=== PATIENT | female | born 1965 | race Caucasian/White ===

== ENCOUNTER → 2019-11-07 10:15 | Outpatient (CLI) | payer OTHER, SELFPAY ==
--- NOTE | ~2019-11-07 | MM_ITS ---
EXAMINATION: MM scrn lou implant BI w frederick HISTORY: Screening mammogram TECHNIQUE: Craniocaudal and mediolateral oblique 3-D tomosynthesis images with implant displacement a nd synthetic 2-D images were generated. Craniocaudal and mediolateral oblique views of the breasts wi thout implant displacement were obtained using full field digital mammography. CAD analysis was submi tted and interpreted. COMPARISON: 05/22/2010, 02/03/2007 BREAST PARENCHYMAL COMPOSITION: The breasts are almost entirely fatty. FINDINGS: There is no evidence of suspicious mass, calcification, or architectural distortion to sugg est malignancy in either breast. There has been no suspicious interval change. IMPRESSION: 1. No mammographic evidence of malignancy. 2. Recommend routine screening mammography in one year. BI-RADS Category 1: Negative Reviewed, dictated and finalized at location A.
--- NOTE | ~2019-11-07 | DEXA_ITS ---
Bone Density Report Name: Shelia Roman Age: 54 Sex: Female Ethnicity: White Date of : 1965 Indication: postmenopausal; screening for osteoporosis; Referring Provider: Cate Pederson Study: Bone densitometry was performed. Exam Date: November 07, 2019 Accession number: [id number] Bone Density: Region BMD T-score Z-score Classification AP Spine (L1-L4) 1.133 0.8 1.7 Normal Femoral Neck (Left) 0.873 0.2 1.2 Normal Total Hip (Left) 1.072 1.1 1.7 Normal Femoral Neck (Right) 0.882 0.3 1.3 Normal Total Hip (Right) 1.055 0.9 1.5 Normal Total Hip Mean 1.064 1.0 1.6 Normal World Health Organization criteria for BMD impression classify patients as: Normal (T-score at or above -1.0), Osteopenia (T-score between -1.0 and -2.5), or Osteoporosis (T-score at or below -2.5). 10-year Fracture Risk: FRAX not reported because: All T-scores for Spine Total, Hip Total, Femoral Neck at or above -1.0 Clinical Information Provided by Patient: Has used the following medications: Vitamin D, 2 doses of Vit D in the past year Patient maximum height was 67.5 Menopause Age: 51 No regular weight bearing exercise Onset of menses at age 13 Number of children 2 Missed period for more than 6 months in a row Impression: The patient has normal bone mass. Discussion: BONE DENSITY IS ABOVE THE MINIMUM DESIRABLE LEVEL AT ALL SKELETAL SITES TESTED. This patient?s bone mineral density is above the minimum desirable level (T-score -1.0 or better) at all sites measured. The patient should follow a healthful lifestyle (good nutrition with adequate calcium and vitamin D, and appropriate weight-bearing exercise). Follow-Up: Consider repeating this study in 5 years or sooner if there is some new clinical indication. Reported by: [facility] on 11/07/2019 11:20:00 AM. Reviewed, dictated and finalized at location AHyun VARGHESE
== END ==
PROVIDERS: Visit Provider Family Medicine
DX: Z12.31 Encounter for screening mammogram for malignant neoplasm of breast (principal); Z78.0 Asymptomatic menopausal state
CPT/HCPCS: 77063; 77067; 77080

== ENCOUNTER → 2021-07-24 10:02 | Outpatient (CLI) | payer BC, SELFPAY ==
--- NOTE | ~2021-07-24 | MM_ITS ---
EXAMINATION: MM scrn lou implant BI w frederick HISTORY: Screening mammogram TECHNIQUE: Craniocaudal and mediolateral oblique 3-D tomosynthesis images with implant displacement a nd synthetic 2-D images were generated. Craniocaudal and mediolateral oblique views of the breasts wi thout implant displacement were obtained using full field digital mammography. CAD analysis was submi tted and interpreted. COMPARISON: 11/07/2019, 05/22/2010 BREAST PARENCHYMAL COMPOSITION: There are scattered areas of fibroglandular density. FINDINGS: There is no evidence of suspicious mass, calcification, or architectural distortion to sugg est malignancy in either breast. There has been no suspicious interval change. IMPRESSION: 1. No mammographic evidence of malignancy. 2. Recommend routine screening mammography in one year. BI-RADS Category 1: Negative Reviewed, dictated and finalized at location A.
== END ==
PROVIDERS: PCP Family Medicine; Visit Provider Obstetrics & Gynecology
DX: Z12.31 Encounter for screening mammogram for malignant neoplasm of breast (principal)
CPT/HCPCS: 77063; 77067

== ENCOUNTER → 2021-11-10 16:16 | Outpatient (CLI) | payer BC, SELFPAY ==
--- NOTE | ~2021-11-10 | XR_ITS ---
EXAMINATION: XR hip RT min 2V DATE: 11/10/2021 16:34 INDICATION: Right hip arthritis. TECHNIQUE: 2 views of right hip were obtained. COMPARISON: None. FINDINGS: Bone alignment is normal. No fracture. There is mild right hip osteoarthritis. There is mil d lumbar spondylosis. IMPRESSION: 1. Mild right hip osteoarthritis. Reviewed, dictated and finalized at location A.
== END ==
PROVIDERS: PCP Family Medicine
DX: M16.11 Unilateral primary osteoarthritis, right hip (principal)
CPT/HCPCS: 73502

== ENCOUNTER 2021-12-12 11:52 | Emergency (ER) | payer BC, SELFPAY ==
--- NOTE | ~2021-12-12 | XR_ITS ---
EXAMINATION: XR ankle RT min 3V INDICATION: Right ankle pain TECHNIQUE: Four views of the right ankle are obtained. COMPARISON: None available FINDINGS: There is no fracture, dislocation, or subluxation. The bones, soft tissues, and joint space s are normal. IMPRESSION: 1. No acute osseous abnormality. Reviewed, dictated and finalized at location A.
[2021-12-12 12:00] VITALS: BP 116/87; PULSE 62; RESP 20; TEMP 36.3; O2SAT 100
--- NOTE | 2021-12-12 13:00 | ED.EXTPRO ---
HPI - Extremity Problem General Chief complaint: Extremity Problem,Nontraumatic Stated complaint: Right ankle pain x 2 weeks Time Seen by Provider: 12/12/21 12:20 History of Present Illness HPI Narrative: 56-year-old female presenting with intermittent sharp severe stabbing pain in her right ankle that occurs every few minutes increasing frequency and intensity, denies any recent trauma. Only new medication is terbinafine. Related Data Home Medications Medication Instructions Recorded Confirmed pantoprazole 20 mg tablet,delayed 20 mg PO .PRN 09/17/20 11/19/21 release Allergies Allergy/AdvReac Type Severity Reaction Status Date / Time sumatriptan [From Imitrex] Allergy Severe hives Verified 12/12/21 12:03 metronidazole Allergy Mild yeast Verified 12/12/21 12:03 infection codeine Allergy Unknown Unknown Verified 12/12/21 12:03 hydrocodone Allergy Unknown Unknown Verified 12/12/21 12:03 metoclopramide Allergy Unknown Unknown Verified 12/12/21 12:03 propoxyphene Allergy Unknown Unknown Verified 12/12/21 12:03 Sulfa (Sulfonamide Allergy Unknown HIVES Verified 12/12/21 12:03 Antibiotics) SULFAMETHOXAZOLE (Generic Allergy Unknown Y Uncoded 12/12/21 12:03 Allergy) SUMATRIPTAN SUCCINATE Allergy Unknown Y Uncoded 12/12/21 12:03 (Generic Allergy) Review of Systems Review of Systems: CONST: No fever. HEENT: No sore throat C/V: No chest pain RESP: No cough GI: No abdominal pain : No dysuria. M/S: Severe right ankle pain SKIN: No rash. NEURO: [No focal numbness or weakness] PSYCH: [No depression] [facility] Past Medical History Medical History (Updated 12/12/21 @ 14:08 by Selin Ramey MD) Bilateral knee pain Dyslipidemia GERD (gastroesophageal reflux disease) Lyme disease Multiple joint pain Obesity (BMI 30-39.9) Sleep disorder Surgical History Surgical History H/O LEEP History of breast augmentation around 26 History of cholecystectomy (~2001) History of knee surgery left knee 07/2018 Hx of tonsillectomy around age 34 Family History Family History Father Family history of rheumatoid arthritis Family history of cardiovascular disease Acute myocardial infarction Mother Family history of kidney disease Family history of dementia Cerebrovascular accident Sibling Family history of cardiovascular disease Social History Social History Smoking status: Former smoker Second hand tobacco smoke exposure: No Smoking end date: 04/26/02 Alcohol intake: never Substance use: never Substance use type: does not use Gender identity (if verbalized by the patient): Female Exam Narrative: EXAMINATION OF ORGAN SYSTEMS/BODY AREAS: Constitutional: Vital signs per nursing GENERAL: Resting comfortably except for when she has the nerve pain at which point she spasms all over and screams HEAD: Normal with no signs of head trauma. EYES: EOMI, conjunctiva normal ENT: Hearing grossly intact LUNGS: Nonlabored breathing. HEART: [Regular rate and rhythm] ABD: [Soft], [nontender to palpation] EXT: Normal range of motion no swelling or deformity or tenderness of the right ankle SKIN: [No rashes or lesions.] NEURO: [Alert and oriented x 3. No gross focal sensory or strength deficits.] PSYCH: Normal affect Course Vital Signs Vital signs: Vital Signs Temperature 97.4 F L 12/12/21 12:00 Pulse Rate 62 12/12/21 12:00 Respiratory Rate 20 12/12/21 12:00 Blood Pressure 116/87 12/12/21 12:00 Pulse Oximetry 100 12/12/21 12:00 Oxygen Delivery Room Air 12/12/21 12:00 Temperature 97.4 F L 12/12/21 12:00 Pulse Rate 62 12/12/21 12:00 Respiratory Rate 20 12/12/21 12:00 Blood Pressure 116/87 12/12/21 12:00 Pulse Oximetry 100 12/12/21 12:00 Oxygen Delivery Room Air 12/12/21 12:00 MDM - Extremit
[2021-12-12] MEDS: GABAPENTIN 300 MG CAPSULE PO (13:07)
[2021-12-12] MEDS: LIDOCAINE 5% PATCH 1 PATCH TRANSDERM (13:07)
[2021-12-12 13:36] LABS: Basophils Percent Auto 0.4 % (0.2-1.2); Eosinophils Absolute Auto 0.1 K/mm3 (0-0.3); Eosinophils Percent Auto 1.8 % (0-4.4); Hematocrit 43.7 % (37.0-47.0); Hemoglobin 14.5 g/dL (12.0-15.0); Immature Granulocyte Absolute 0.03 K/mm3 (0.00-0.031); Immature Granulocyte Percent A 0.4 % (0-0.5); Lymphocytes Absolute Auto 1.94 K/mm3 (0.9-3.2); Lymphocytes Percent Auto 26.5 % (18.3-44.2); Mean Corpuscular HGB Conc 33.2 g/dl (32-36); Mean Corpuscular Volume 93.6 fl (80-100); Mean Platelet Volume 10.4 fl (7.4-10.4); Monocytes Absolute Auto 0.6 K/mm3 (0.1-0.6); Monocytes Percent Auto 7.9 % (2.6-8.5); Neutrophils Absolute Auto 4.6 K/mm3 (1.3-6.7); Platelet Count Result 273 k/mm3 (150-375); Red Blood Count 4.67 M/mm3 (4.2-5.4); Red Cell Distribution Width 12.3 % (11.5-14.5); White Blood Count 7.3 K/mm3 (4.5-10.0)
[2021-12-12 13:44] LABS: Anion Gap 10 mmol/L (8-16); Blood Urea Nitrogen 16 mg/dL (7-17); Calcium 10.2 mg/dL (8.4-10.2); Carbon Dioxide 27 mmol/L (22-30); Chloride 100 mmol/L (98-107); Estimated CRCL calculation 89 ml/min; Estimated Glomerular Filt Rate > 60; Glucose 98 mg/dL (65-110); Magnesium 2.1 mg/dL (1.6-2.3); Potassium 3.9 mmol/L (3.4-5.0); Sodium 137 mmol/L (137-145)
[2021-12-12 14:27] VITALS: BP 120/62; PULSE 76; RESP 18; O2SAT 99
== END 2021-12-12 14:28 | disposition home or self-care (01) ==
PROVIDERS: Emergency Provider Emergency Medicine; PCP Family Medicine
DX: G62.9 Polyneuropathy, unspecified (principal); M25.571 Pain in right ankle and joints of right foot; K21.9 Gastro-esophageal reflux disease without esophagitis; A69.20 Lyme disease, unspecified; E66.9 Obesity, unspecified; Z68.32 Body mass index [BMI] 32.0-32.9, adult; Z87.891 Personal history of nicotine dependence
CPT/HCPCS: 36415; 73610; 80048; 83735; 85025; 99283; A9270

== ENCOUNTER → 2022-01-23 09:28 | Outpatient (CLI) | payer BC, SELFPAY ==
--- NOTE | ~2022-01-23 | XR_ITS ---
EXAMINATION: XR lumbar spine min 4V DATE: 01/23/2022 10:03 INDICATION: Other spondylosis with radiculopathy, lumbosacral spine. TECHNIQUE: 5 views of lumbar spine were obtained. COMPARISON: Lumbar spine radiographs 01/02/2019 FINDINGS: There is 5 degrees dextrocurvature of lumbar spine. Vertebral body heights are normal. Ther e is mildly decreased disc height at L3-L4. There are endplate osteophytes at multiple levels. There is moderate facet joint osteoarthritis at L4-L5 and L5-S1 and mild facet joint osteoarthritis at othe r levels. IMPRESSION: 1. Mild lumbar spondylosis. Reviewed, dictated and finalized at location A. IMPRESSION: 1. Mild lumbar spondylosis.
== END ==
PROVIDERS: PCP Family Medicine; Visit Provider Physician Assistant
DX: M47.27 Other spondylosis with radiculopathy, lumbosacral region (principal)
CPT/HCPCS: 72110

== ENCOUNTER 2022-01-28 17:22 | Emergency (ER) | payer BC, SELFPAY ==
[2022-01-28 17:29] VITALS: BP 110/81; PULSE 64; RESP 20; TEMP 36.8; O2SAT 97
--- NOTE | 2022-01-28 17:45 | ED.FEMALEGU ---
HPI - Female Genitourinary General Chief complaint: Urogenital-Female Stated complaint: uti Time Seen by Provider: 01/28/22 17:35 Source: patient, RN notes reviewed and old records reviewed Mode of arrival: ambulatory Limitations: no limitations History of Present Illness HPI Narrative: 56-year-old female who presents to [facility] care with complaints of frequency of urination, burning, urgency, and perineal pressure which started last p.m. Patient reports she has had UTIs in the past patient denies any known fevers chills or sweats. Patient reports no back pain or flank pain. Patient denies any vaginal discharge or concern for STDs MD elicited complaint: UTI Onset (ago): day(s) (last pm) Location of symptoms: perineum Related Data Home Medications Medication Instructions Recorded Confirmed pantoprazole 20 mg tablet,delayed 20 mg PO .PRN 09/17/20 01/28/22 release calcium carbonate 600 mg-vitamin 1 cap PO DAILY 01/14/22 01/28/22 D3 12.5 mcg (500 unit) capsule (Calcium 600 with Vitamin D3) cetirizine 10 mg tablet (Zyrtec) 10 mg PO DAILY PRN Runny Nose 01/14/22 01/28/22 Allergies Allergy/AdvReac Type Severity Reaction Status Date / Time sumatriptan [From Imitrex] Allergy Severe hives Verified 01/28/22 17:40 metronidazole Allergy Mild yeast Verified 01/28/22 17:40 infection codeine Allergy Unknown Vomiting Verified 01/28/22 17:40 hydrocodone Allergy Unknown Vomiting Verified 01/28/22 17:40 metoclopramide Allergy Unknown Unknown Verified 01/28/22 17:40 propoxyphene Allergy Unknown Unknown Verified 01/28/22 17:40 Sulfa (Sulfonamide Allergy Unknown HIVES Verified 01/28/22 17:40 Antibiotics) SULFAMETHOXAZOLE (Generic Allergy Unknown Y Uncoded 01/27/22 09:05 Allergy) SUMATRIPTAN SUCCINATE Allergy Unknown Y Uncoded 01/27/22 09:05 (Generic Allergy) Review of Systems Review of Systems: CONSTITUTIONAL: Denies fever, chills, or sweats. CARDIOVASCULAR: Denies chest pain, palpitations, or edema. RESPIRATORY: Denies cough or dyspnea. GASTROINTESTINAL: Denies abdominal pain, nausea, vomiting, or diarrhea. GENITOURINARY: Reports dysuria, frequency, urgency. Denies flank pain or hematuria. SKIN: Denies rash or itching. MUSCULOSKELETAL: Denies back pain or myalgia. Denies CVA tenderness NEUROLOGIC: Denies headache All systems reviewed & are unremarkable except as noted in HPI and below PMFSH Past Medical History Medical History Arthritis Bilateral knee pain Claustrophobia Disorder of ligament, right ankle Dyslipidemia GERD (gastroesophageal reflux disease) Lyme disease Multiple joint pain Obesity (BMI 30-39.9) Obesity (BMI 30-39.9) Other spondylosis with radiculopathy, lumbosacral region Sleep disorder Alpha Wave Intrusion Surgical History Surgical History H/O LEEP History of breast augmentation around 26 History of cholecystectomy (~2001) History of knee surgery left knee 07/2018 Hx of tonsillectomy around age 34 Family History Family History Father Family history of rheumatoid arthritis Family history of cardiovascular disease Acute myocardial infarction Mother Family history of kidney disease Family history of dementia Cerebrovascular accident Sibling Family history of cardiovascular disease Other HLD (hyperlipidemia) Heart disease Hypertension Social History Social History Smoking status: Former smoker Tobacco type: cigarettes Second hand tobacco smoke exposure: No Smoking end date: 04/26/02 Alcohol intake: never Substance use: never Substance use type: does not use Gender identity (if verbalized by the patient): Female Comments At time of signature, agree with nursing past medical, surgical, social and family history. Ther
== END 2022-01-28 18:10 | disposition home or self-care (01) ==
PROVIDERS: Emergency Provider Registered Nurse; PCP Family Medicine
DX: N39.0 Urinary tract infection, site not specified (principal); Z87.891 Personal history of nicotine dependence; M19.90 Unspecified osteoarthritis, unspecified site; E78.5 Hyperlipidemia, unspecified; K21.9 Gastro-esophageal reflux disease without esophagitis; E66.9 Obesity, unspecified; Z68.36 Body mass index [BMI] 36.0-36.9, adult
CPT/HCPCS: 81003; 87086; 87088; 99213; G0463

== ENCOUNTER → 2022-02-09 07:10 | Outpatient (CLI) | payer BC, SELFPAY ==
--- NOTE | ~2022-02-09 | MR_ITS ---
EXAMINATION: MR ankle RT wo con DATE: 02/09/2022 08:08 INDICATION: Right ankle pain TECHNIQUE: Magnetic resonance imaging (MRI) of the right ankle was performed without intravenous cont rast. Sequences included sagittal, coronal, and axial proton-density weighted fast spin echo without and with fat saturation. COMPARISON: None. FINDINGS: Medial ankle ligaments: Deep and superficial deltoid ligaments as well as the spring ligament are normal. Lateral ankle ligaments: Partial-thickness tear involving the deep half of the fibular insertion of the anterior talofibular l igament without surrounding edema suggesting this is chronic.. Calcaneofibular and posterior talofibu lar ligaments are normal. The anterior and posterior inferior tibiofibular ligaments are normal. Tendons: Mild distal Achilles tendinosis without tear. The peroneus longus and brevis tendons are normal. The tibialis anterior and extensor hallucis longus and extensor digitorum longus tendons are normal. The tibialis posterior, flexor digitorum longus and flexor hallucis longus tendons are normal. Plantar fascia: Small plantar calcaneal spur at the origin of the otherwise normal plantar aponeurosis. Bones/other: Bone alignment is normal. No fracture or pathologic marrow replacing process. Mild osteoarthritis at the second-fourth metatarsophalangeal joint with unilateral extremity nonuniform joint space narrowin g and mild subarticular edema-like signal changes detailed the left distal clavicular fracture is the consensus leads still readily radiologist wanted at the middle and lateral cuneiforms at the base of the second and fourth metatarsals. Fluid: Small ankle joint effusion. No bursitis, tenosynovitis or other abnormal fluid collections. IMPRESSION: 1. 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 2. Nonspecific small right ankle joint effusion. 3. Mild osteoarthritis with small regions of high-grade chondromalacia at the second-fourth tarsal me tatarsal joints Reviewed, dictated and finalized at location A. IMPRESSION: 1. Likely chronic partial tear at the fibular insertion anterior talofibular li gament. 2. Nonspecific small right ankle joint effusion. 3. Mild osteoarthritis with small regions of high-grade chondromalacia at the s econd-fourth tarsal metatarsal joints
--- NOTE | ~2022-02-09 | MR_ITS ---
EXAMINATION: MR lumbar spine wo con DATE: 02/09/2022 08:08 INDICATION: Low back pain. TECHNIQUE: Magnetic resonance imaging (MRI) of the lumbar spine was performed without intravenous con trast. Sequences included sagittal T2-weighted FSE, sagittal T2-weighted FS FSE, sagittal T1-weighted FSE, and axial T2-weighted FSE. COMPARISON: Lumbar spine radiographs 01/23/2022 FINDINGS: There is 7 degrees dextrocurvature of lumbar spine. Vertebral body heights are normal. Ther e is mildly decreased disc height at L3-L4. The distal spinal cord signal intensity is normal. The co nus medullaris is at T12-L1. The following disc levels are specifically discussed: L1-L2: The disc does not extend beyond the endplate margin. There is mild bilateral facet joint osteo arthritis. There is no neural foraminal stenosis. There is no central canal stenosis. L2-L3: The disc is bulging with superimposed right foraminal extrusion. There is moderate bilateral f acet joint osteoarthritis. There is moderate right and mild left neural foraminal stenosis. There is mild central canal stenosis. L3-L4: The disc is bulging and has an annular fissure. There is severe bilateral facet joint osteoart hritis. There is mild right and moderate left neural foraminal stenosis. There is mild central canal stenosis. L4-L5: The disc is bulging and has an annular fissure. There is severe bilateral facet joint osteoart hritis. There is moderate bilateral neural foraminal stenosis. There is mild central canal stenosis. L5-S1: The disc is bulging and has an annular fissure. There is mild right and moderate left facet yvette int osteoarthritis. There is mild bilateral neural foraminal stenosis. There is mild central canal st enosis. IMPRESSION: 1. Moderate lumbar spondylosis. Reviewed, dictated and finalized at location B.
== END ==
PROVIDERS: PCP Family Medicine; Visit Provider Orthopaedic Surgery
DX: M47.896 Other spondylosis, lumbar region (principal); M25.471 Effusion, right ankle; M19.071 Primary osteoarthritis, right ankle and foot
CPT/HCPCS: 72148; 73721

== ENCOUNTER 2022-02-16 19:40 | Emergency (ER) | payer BC, SELFPAY ==
[2022-02-16 19:51] VITALS: BP 104/80; PULSE 80; RESP 18; TEMP 36.7; O2SAT 100
--- NOTE | 2022-02-17 00:36 | ED.EXTPRO ---
HPI - Extremity Problem General Chief complaint: Extremity Problem,Nontraumatic Stated complaint: screaming pain Time Seen by Provider: 02/17/22 00:33 Source: patient Mode of arrival: EMS Limitations: no limitations History of Present Illness HPI Narrative: This is a 56 year old female that presents to the ER for right ankle pain. Ongoing over the last couple of months. She has been seeing orthopedics and neurology for this. Reports intermittent shooting pains. She has been taking Gabapentin for this. Denies fever, erythema, edema, or numbness. Related Data Home Medications Medication Instructions Recorded Confirmed pantoprazole 20 mg tablet,delayed 20 mg PO .PRN 09/17/20 01/28/22 release calcium carbonate 600 mg-vitamin 1 cap PO DAILY 01/14/22 01/28/22 D3 12.5 mcg (500 unit) capsule (Calcium 600 with Vitamin D3) cetirizine 10 mg tablet (Zyrtec) 10 mg PO DAILY PRN Runny Nose 01/14/22 01/28/22 Allergies Allergy/AdvReac Type Severity Reaction Status Date / Time sumatriptan [From Imitrex] Allergy Severe hives Verified 02/16/22 19:49 metronidazole Allergy Mild yeast Verified 02/16/22 19:49 infection codeine Allergy Unknown Vomiting Verified 02/16/22 19:49 hydrocodone Allergy Unknown Vomiting Verified 02/16/22 19:49 metoclopramide Allergy Unknown Unknown Verified 02/16/22 19:49 propoxyphene Allergy Unknown Unknown Verified 02/16/22 19:49 Sulfa (Sulfonamide Allergy Unknown HIVES Verified 02/16/22 19:49 Antibiotics) SULFAMETHOXAZOLE (Generic Allergy Unknown Y Uncoded 01/27/22 09:05 Allergy) SUMATRIPTAN SUCCINATE Allergy Unknown Y Uncoded 01/27/22 09:05 (Generic Allergy) Review of Systems Review of Systems: CONSTITUTIONAL: Denies fever MUSCULOSKELETAL: Reports joint pain, and myalgia. NEUROLOGIC: Denies numbness, or weakness. All systems reviewed & are unremarkable except as noted in HPI and below PMFSH Past Medical History Medical History Arthritis Bilateral knee pain Claustrophobia Disorder of ligament, right ankle Dyslipidemia GERD (gastroesophageal reflux disease) Lyme disease Multiple joint pain Obesity (BMI 30-39.9) Obesity (BMI 30-39.9) Other spondylosis with radiculopathy, lumbosacral region Sleep disorder Alpha Wave Intrusion Surgical History Surgical History H/O LEEP History of breast augmentation around 26 History of cholecystectomy (~2001) History of knee surgery left knee 07/2018 Hx of tonsillectomy around age 34 Family History Family History Father Family history of rheumatoid arthritis Family history of cardiovascular disease Acute myocardial infarction Mother Family history of kidney disease Family history of dementia Cerebrovascular accident Sibling Family history of cardiovascular disease Other HLD (hyperlipidemia) Heart disease Hypertension Social History Social History Smoking status: Former smoker Tobacco type: cigarettes Second hand tobacco smoke exposure: No Smoking end date: 04/26/02 Alcohol intake: never Substance use: never Substance use type: does not use Gender identity (if verbalized by the patient): Female Exam Narrative: GENERAL: Well-appearing, well-nourished, and in no acute distress. HEAD: Normocephalic, atraumatic. EYES: EOMI. EXTREMITIES: Normal range of motion. No edema, erythema or warmth. Normal DP pulse. Normal sensation SKIN: Warm, dry, no rash. NEURO: No focal deficits. Alert and oriented x3. PSYCH: Normal mood and affect Course Vital Signs Vital signs: Vital Signs Temperature 98.1 F 02/16/22 19:51 Pulse Rate 80 02/16/22 19:51 Respiratory Rate 18 02/16/22 19:51 Blood Pressure 104/80 02/16/22 19:51 Pulse Oximetry 100 02/16/22 19:51 Oxygen Delive
[2022-02-17] MEDS: KETOROLAC 30 MG/ML VIAL (*BKC) IM (00:55)
[2022-02-17] MEDS: ACETAMINOPHEN 500 MG TABLET 1000 MG PO (00:55)
[2022-02-17 00:56] LABS: Basophils Percent Auto 0.5 % (0.2-1.2); Eosinophils Absolute Auto 0.2 K/mm3 (0-0.3); Eosinophils Percent Auto 2.6 % (0-4.4); Hematocrit 44.8 % (37.0-47.0); Hemoglobin 14.8 g/dL (12.0-15.0); Immature Granulocyte Absolute 0.01 K/mm3 (0.00-0.031); Immature Granulocyte Percent A 0.1 % (0-0.5); Lymphocytes Absolute Auto 3.15 K/mm3 (0.9-3.2); Lymphocytes Percent Auto 39.2 % (18.3-44.2); Mean Corpuscular Hemoglobin 31.4 pg (26-34); Mean Corpuscular Volume 95.1 fl (80-100); Monocytes Absolute Auto 0.6 K/mm3 (0.1-0.6); Monocytes Percent Auto 7.5 % (2.6-8.5); Neutrophils Percent Auto 50.1 % (45.5-73.1); Platelet Count Result 317 k/mm3 (150-375); Red Blood Count 4.71 M/mm3 (4.2-5.4); Red Cell Distribution Width 12.5 % (11.5-14.5)
[2022-02-17 01:07] VITALS: BP 114/83; PULSE 74; RESP 16; O2SAT 99
[2022-02-17 01:21] LABS: Anion Gap 13 mmol/L (8-16); Blood Urea Nitrogen 17 mg/dL (7-17); CRP < 0.5 mg/dL (<1.0); Calcium 9.4 mg/dL (8.4-10.2); Carbon Dioxide 27 mmol/L (22-30); Chloride 103 mmol/L (98-107); Estimated CRCL calculation 78 ml/min; Estimated Glomerular Filt Rate > 60; Glucose 126 mg/dL (65-110); Potassium 3.9 mmol/L (3.4-5.0); Sodium 143 mmol/L (137-145); Uric Acid 3.2 mg/dL (2.5-7.5)
[2022-02-17 01:22] LABS: INR 1.1; Prothrombin Time 13.7 Seconds (11.1-14.7)
[2022-02-17 01:23] LABS: Partial Thromboplastin Time 30.9 SECONDS (22.3-36.8)
[2022-02-17 01:35] LABS: D Dimer 0.48 ug/mL (<0.48); Erythrocyte Sedimentation Rate 12 mm/hr (0-20)
[2022-02-17 01:54] VITALS: BP 117/82; PULSE 70; RESP 16; O2SAT 94
== END 2022-02-17 01:55 | disposition home or self-care (01) ==
PROVIDERS: Physician Assistant; Emergency Provider Emergency Medicine; PCP Family Medicine
DX: M25.571 Pain in right ankle and joints of right foot (principal); G89.29 Other chronic pain; E78.5 Hyperlipidemia, unspecified; K21.9 Gastro-esophageal reflux disease without esophagitis; M19.90 Unspecified osteoarthritis, unspecified site; E66.9 Obesity, unspecified; Z68.32 Body mass index [BMI] 32.0-32.9, adult; G47.9 Sleep disorder, unspecified; Z87.891 Personal history of nicotine dependence
CPT/HCPCS: 36415; 80048; 84550; 85025; 85380; 85610; 85652; 85730; 86140; 96372; 99283; A9270; J1885

== ENCOUNTER 2022-02-18 09:23 | Outpatient (CLI) | payer BC, SELFPAY ==
--- NOTE | 2022-02-18 11:00 | NEURO_ITS ---
Impression: # Complains of right ankle pain. # Normal nerve conduction study. # Normal needle/EMG exam. # Clinical correlation recommended. Motor Nerve Conduction Lower Extremities Peroneal Nerve Conduction Velocity (m/sec) Terminal Latency (msec) Response Voltage(mV) Popliteal space-Ankle Ankle Extensor Dig Brevis Popliteal space Ankle Right 47-45 3.8 3-3 4 Left Tibial Nerve Conduction Velocity (m/sec) Terminal Latency (msec) Response Voltage(mV) Popliteal space-Ankle Ankle-Extensor Dig Brevis Popliteal space Ankle Right 45 3.9 5 6 Left F-waves Peroneal Nerve (ms) Tibial Nerve (ms) Right 53.2 53.5 Left Sensory Nerve Conduction Lower Extremities Sural Nerve Stimulation Terminal Latency (msec) Ankle Response Voltage (uV) Ankle Response Velocity (m/sec) Right 3.8 6 42 Left Superficial Peroneal Nerve Stimulation Terminal Latency (msec) Ankle Response Voltage (uV) Ankle Response Velocity (m/sec) Right 3.7 16 43 Left Left Right Muscles Examined Fibrillation Fasciculation Scarcity Voltage Duration Left Right Left Right Left Right Left Right Left Right x Ant Tibialis x Gastroc x Fibularis Long x Flex Dig Long x Ext Dig Brev Abd Hallucis Quadriceps Paraspinals MTDD
== END 2022-02-18 09:24 | disposition home or self-care (01) ==
LOC: ANHNEURO 09:24
PROVIDERS: PCP Family Medicine; Visit Provider Student in an Organized Health Care Education/Training Program
DX: M25.571 Pain in right ankle and joints of right foot (principal)
CPT/HCPCS: 95886; 95908

== ENCOUNTER → 2022-04-22 13:59 | Outpatient (CLI) | payer BC, SELFPAY ==
--- NOTE | ~2022-04-22 | MR_ITS ---
EXAMINATION: MR ankle RT wo/w con DATE: 04/22/2022 15:05 INDICATION: Right ankle pain TECHNIQUE: Magnetic resonance imaging (MRI) of the right ankle was performed without and with 20 mL M ultihance intravenous contrast. Sequences included axial, sagittal and coronal PD-weighted FSE, axial T2-weighted FS FSE, sagittal and coronal PD-weighted FS FSE, axial T1-weighted FS FSE and postcontra st axial, sagittal and coronal T1-weighted FS FSE. COMPARISON: 02/09/2022 FINDINGS: Medial ankle ligaments: Deep and superficial deltoid ligaments as well as the spring ligament are normal. Lateral ankle ligaments: The anterior and posterior inferior tibiofibular ligaments are normal. The anterior talofibular, calc aneofibular and posterior talofibular ligaments are normal. The previously suspected partial tear sofiya ng the deep margin of the fibular insertion of the anterior talofibular ligament is not appreciated i n the current study. Tendons: Unchanged mild distal Achilles tendinosis without tear. The peroneus longus and brevis tendons are no rmal. The tibialis anterior and extensor hallucis longus and extensor digitorum longus tendons are no rmal. The tibialis posterior, flexor digitorum longus and flexor hallucis longus tendons are normal. Plantar fascia: Small plantar calcaneal spur at the origin of the otherwise normal plantar aponeurosis. Bones/other: Bone alignment is normal. No fracture or pathologic marrow replacing process. Again seen is osteoarth ritis with mild to moderate nonuniform joint space narrowing at the second-fourth tarsal metatarsal j oints. There is associated focal subarticular edema-like signal change with minimal enhancement along the distal articular surfaces of the mid and bilateral cuneiforms and at the base of the second and fourth metatarsals consistent with overlying high-grade chondromalacia. This appears to have progress ed slightly at both sides of the dorsal/medial aspect of the second tarsal metatarsal joint. Addition al mild osteoarthritis with mild partial-thickness cartilage loss without degenerative subchondral ch anges at the medial side of the talonavicular joint and lateral side of the calcaneocuboid joint. No enhancing erosions to suggest inflammatory arthritis. No fracture or pathologic marrow replacing proc ess. The Lisfranc ligament complex is normal. No soft tissue mass or other abnormally enhancing lesio ns identified. Fluid: Interval decrease in a now minimal ankle joint effusion. IMPRESSION: 1. Polyarticular osteoarthritis, mild at the calcaneocuboid and talonavicular joints and mild to mode rate small regions of high-grade chondromalacia at the second-fourth tarsal metatarsal joints with in terval progression at the second tarsal metatarsal joint. 2. Interval decrease in a now minimal right ankle joint effusion. 3. Unchanged distal Achilles tendinosis without tear. Reviewed, dictated and finalized at location A. [employer]AC[employer] PROFESSIONAL IMPRESSION: 1. Polyarticular osteoarthritis, mild at the calcaneocuboid and talonavicular j oints and mild to moderate small regions of high-grade chondromalacia at the se cond-fourth tarsal metatarsal joints with interval progression at the second ta rsal metatarsal joint. 2. Interval decrease in a now minimal right ankle joint effusion. 3. Unchanged distal Achilles tendinosis without tear.
== END ==
PROVIDERS: PCP Family Medicine; Visit Provider Student in an Organized Health Care Education/Training Program
DX: M19.071 Primary osteoarthritis, right ankle and foot (principal)
CPT/HCPCS: 73723; A9577

== ENCOUNTER 2022-10-02 13:27 | Emergency (ER) | payer BC, SELFPAY ==
[2022-10-02 13:32] VITALS: BP 124/52; PULSE 78; RESP 16; TEMP 37.3; O2SAT 100
--- NOTE | 2022-10-02 13:42 | ED.GENADULT ---
HPI - General Adult General Chief complaint: Extremity Injury, Lower Stated complaint: R HIP PAIN Time Seen by Provider: 10/02/22 13:40 Source: patient, RN notes reviewed and old records reviewed Mode of arrival: ambulatory Limitations: no limitations History of Present Illness HPI narrative: 57 year old female presents to [facility] care with complaints of pain to her right hip and buttocks that she states has been going on for about 15 months and has flared for the past 2 days. She reports that she called her physician at [facility] and was told that she needed to go to ER but she came here. Patient told we do not have any pain medication available at out facility. She reports that pain is severe, throbbing, burning, especially with movement and ambulation. Patient requests RX for some Prednisone. Patient reports that they are waiting on preauthorization for another MRI,last was 8 months ago. Patient drove self here and ambulated into clinic with limping gait.Patient denies any difficulty with bowels or bladder function, states intermittent pain down right leg at various areas. MD complaint: right hip and buttock pain Onset (ago): day(s) (15 months initially with flare for past 2 days.) Location: buttocks, right and lower extremity (hip) Radiation: other (right leg) Severity: severe Severity scale (1-10): 10 Quality: burning, sharp and other (throbbing) Pain Consistency: constant Exacerbating factors: movement and other (ambulation) Treatments prior to arrival: other (anti- inflammatory meds) Related Data Home Medications Medication Instructions Recorded Confirmed calcium carbonate 600 mg-vitamin 1 cap PO DAILY 01/14/22 10/02/22 D3 12.5 mcg (500 unit) capsule (Calcium 600 with Vitamin D3) cetirizine 10 mg tablet (Zyrtec) 10 mg PO DAILY PRN Runny Nose 01/14/22 10/02/22 folic acid 1 mg tablet 1 mg PO DAILY 10/02/22 10/02/22 methotrexate sodium 2.5 mg tablet See Rx Instructions .Route .COMPLEX 10/02/22 10/02/22 Allergies Allergy/AdvReac Type Severity Reaction Status Date / Time sumatriptan [From Imitrex] Allergy Severe hives Verified 10/02/22 13:36 metronidazole Allergy Mild yeast Verified 10/02/22 13:36 infection codeine Allergy Unknown Vomiting Verified 10/02/22 13:36 hydrocodone Allergy Unknown Vomiting Verified 10/02/22 13:36 metoclopramide Allergy Unknown Unknown Verified 10/02/22 13:36 propoxyphene Allergy Unknown Unknown Verified 10/02/22 13:36 Sulfa (Sulfonamide Allergy Unknown HIVES Verified 10/02/22 13:36 Antibiotics) tramadol AdvReac Severe Migraine Verified 10/02/22 13:36 SULFAMETHOXAZOLE (Generic Allergy Unknown Y Uncoded 10/02/22 13:36 Allergy) SUMATRIPTAN SUCCINATE Allergy Unknown Y Uncoded 10/02/22 13:36 (Generic Allergy) Review of Systems Review of Systems: CONSTITUTIONAL: Denies fever, chills, or sweats. EYES: Denies visual changes, redness, or discharge. ENT: Denies rhinorrhea, congestion, sore throat, or otalgia. CARDIOVASCULAR: Denies chest pain, palpitations, or edema. RESPIRATORY: Denies cough or dyspnea. GASTROINTESTINAL: Denies abdominal pain, nausea, vomiting, or diarrhea. GENITOURINARY: Denies dysuria or hematuria. SKIN: Denies rash or itching. no contusion noted or any redness MUSCULOSKELETAL: Reports severe right buttock, right hip pain, or myalgia. NEUROLOGIC: Denies headache, numbness, or weakness. PSYCHIATRIC: Denies anxiety or depression.is very anxious All systems reviewed & are unremarkable except as noted in HPI and below PMFSH Past Medical History Medical History Ankylosing spondylitis Arthritis Bilateral knee pain Claustrophobia Disorder of ligament, right ankle Dyslipidemia GERD (gastroesophageal reflux disease) Lyme disease Multiple joint pain Obesity (BMI 30-39.9) Obesity (BMI 30-39.9) Other spondylosis with radiculopathy, lumbosacral region Sleep disorder Alpha Wave Intrusion Surgical History
== END 2022-10-02 13:57 | disposition home or self-care (01) ==
PROVIDERS: Emergency Provider Registered Nurse; PCP Family Medicine
DX: M54.31 Sciatica, right side (principal); Z87.891 Personal history of nicotine dependence; M45.9 Ankylosing spondylitis of unspecified sites in spine; E78.5 Hyperlipidemia, unspecified; K21.9 Gastro-esophageal reflux disease without esophagitis; M47.27 Other spondylosis with radiculopathy, lumbosacral region
CPT/HCPCS: 99213; G0463

== ENCOUNTER 2023-01-27 13:07 | Emergency (ER) | payer BC, SELFPAY ==
[2023-01-27 13:13] VITALS: BP 118/74; PULSE 82; RESP 16; TEMP 36.9; O2SAT 99
--- NOTE | 2023-01-27 13:38 | ED.URI ---
HPI - URI/Sore Throat General Chief Complaint: Upper Respiratory Infection Stated Complaint: Sinus Infection Time Seen by Provider: 01/27/23 13:09 Source: patient and RN notes reviewed History of Present Illness HPI Narrative: Patient is a 57-year-old female presents to urgent care with complaints of 3 weeks of sinus pressure, inflammation and drainage. Patient states she called her PCP last week and they told her it was viral and to use [id number] Mucinex and Sudafed. Patient states that she has been using combination of those medications for the last 3 weeks and also started sinus rinses without much improvement. Patient states that her mucus went from clear to green. Patient denies any cough, fever, nausea or vomiting. Patient states that she cannot be sick for her total hip replacement on February 12 and is requesting antibiotics. No other acute complaints. No acute distress noted. Patient aware of the plan of care. Some parts of this dictation were generated by voice recognition software and may contain typographical and/or grammatical inaccuracies. Related Data Home Medications Medication Instructions Recorded Confirmed cetirizine 10 mg tablet (Zyrtec) 10 mg PO DAILY PRN Runny Nose 01/14/22 01/27/23 Allergies Allergy/AdvReac Type Severity Reaction Status Date / Time sumatriptan [From Imitrex] Allergy Severe hives Verified 01/27/23 13:21 metronidazole Allergy Mild yeast Verified 01/27/23 13:21 infection codeine Allergy Unknown Vomiting Verified 01/27/23 13:21 hydrocodone Allergy Unknown Vomiting Verified 01/27/23 13:21 metoclopramide Allergy Unknown Unknown Verified 01/27/23 13:21 propoxyphene Allergy Unknown Unknown Verified 01/27/23 13:21 Sulfa (Sulfonamide Allergy Unknown HIVES Verified 01/27/23 13:21 Antibiotics) tramadol AdvReac Severe Migraine Verified 01/27/23 13:21 SULFAMETHOXAZOLE (Generic Allergy Unknown Y Uncoded 01/27/23 13:21 Allergy) SUMATRIPTAN SUCCINATE Allergy Unknown Y Uncoded 01/27/23 13:21 (Generic Allergy) Review of Systems Review of Systems: CONSTITUTIONAL: Denies fever, chills, or sweats. EYES: Denies visual changes, redness, or discharge. ENT: Reports of sinus pressure, congestion, postnasal drainage CARDIOVASCULAR: Denies chest pain, palpitations, or edema. RESPIRATORY: Denies cough or dyspnea. GASTROINTESTINAL: Denies abdominal pain, nausea, vomiting, or diarrhea. GENITOURINARY: Denies dysuria or hematuria. SKIN: Denies rash or itching. MUSCULOSKELETAL: Denies back pain, joint pain, or myalgia. NEUROLOGIC: Denies headache, numbness, or weakness. All other systems reviewed are negative, except as documented in HPI. [facility] Past Medical History Medical History Ankylosing spondylitis Arthritis Bilateral knee pain Claustrophobia Disorder of ligament, right ankle Dyslipidemia GERD (gastroesophageal reflux disease) Lyme disease Multiple joint pain Obesity (BMI 30-39.9) Obesity (BMI 30-39.9) Other spondylosis with radiculopathy, lumbosacral region Sleep disorder Alpha Wave Intrusion Surgical History Surgical History H/O LEEP History of breast augmentation around 26 History of cholecystectomy (~2001) History of knee surgery left knee 07/2018 Hx of tonsillectomy around age 34 Family History Family History Father Family history of rheumatoid arthritis Family history of cardiovascular disease Acute myocardial infarction Mother Family history of kidney disease Family history of dementia Cerebrovascular accident Sibling Family history of cardiovascular disease Other HLD (hyperlipidemia) Heart disease Hypertension Social History Social History Smoking status: Former smoker Tobacco type: cigarettes Second
== END 2023-01-27 13:55 | disposition home or self-care (01) ==
PROVIDERS: Emergency Provider Nurse Practitioner Family; PCP Family Medicine
DX: J32.9 Chronic sinusitis, unspecified (principal); Z87.891 Personal history of nicotine dependence
CPT/HCPCS: 99213; G0463

== ENCOUNTER → 2023-03-15 15:30 | Outpatient (CLI) | payer BC, SELFPAY ==
--- NOTE | ~2023-03-15 | US_ITS ---
US soft tissue lower back 03/15/2023 15:46 Indication: Localized swelling of the right lower back Procedure: High-resolution Limited ultrasound of the right lower back soft tissues Comparison: No prior studies for comparison. Findings: Normal heterogeneous soft tissues without focal solid or cystic mass. Impression: 1: Normal limited soft tissue ultrasound of the right lower back in the area of palpable concern. No discrete mass. Reviewed, dictated and finalized at location B. 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 No discrete mass.
== END ==
PROVIDERS: PCP Physician Assistant; Visit Provider Physician Assistant
DX: R22.2 Localized swelling, mass and lump, trunk (principal)
CPT/HCPCS: 76705

== ENCOUNTER → 2023-03-29 10:07 | Outpatient (CLI) | payer BC, SELFPAY ==
--- NOTE | ~2023-03-29 | CT_ITS ---
EXAMINATION: CT lumbar spine w con DATE: 03/29/2023 10:49 INDICATION: Localized lumbar soft tissue mass. TECHNIQUE: Computed tomography (CT) of the lumbar spine was performed with 100 mL Omnipaque-350 intra venous contrast. Automated exposure control and iterative reconstruction technique were employed. Th e dose-length product was 910.40 mGy-cm. COMPARISON: None FINDINGS: Deep to the marker indicating the mass of concern are couple subtle ovoid macroscopic fat attenuation subcutaneous masses without evident solid soft tissue components which measure 5.1 x 3.0 x 2.7 cm an d 3.0 x 2.7 x 2.5 cm without evident solid soft tissue component consistent with lipomas. The masses abut each other and could potentially represent a single bilobed lipoma. These are located in the sub cutaneous fat overlying the posterior medial aspect of the right iliac crest. No other masses identif ied. 6 degrees lumbar dextrocurvature. Sagittal alignment is normal. Vertebral body heights are normal. No fracture. Mild to moderate left-sided predominant disc height loss at L3-L4. Mild disc height loss a t L4-L5 and L5-S1 and with left-sided predominance at L2-L3. Cholecystectomy clips at the gallbladder fossa. The following disc levels are specifically discussed: T11-T12: The disc does not extend beyond the endplate margin. There is mild bilateral facet joint ost eoarthritis. There is no neural foraminal stenosis. There is no central canal stenosis. T12-L1: The disc does not extend beyond the endplate margin. There is mild right and moderate left fa cet joint osteoarthritis. There is no neural foraminal stenosis. There is no central canal stenosis. L1-L2: Disc is mildly bulging. There is mild bilateral facet joint osteoarthritis. There is no neural foraminal stenosis. There is no central canal stenosis. L2-L3: Disc is bulging. There is mild left and mild to moderate right facet joint osteoarthritis. The re is mild bilateral neural foraminal stenosis. There is mild central canal stenosis. L3-L4: Disc is bulging. There is severe bilateral facet joint osteoarthritis. There is moderate left and mild right neural foraminal stenosis. There is mild central canal stenosis. L4-L5: Disc is bulging, eccentric to the right. There is severe bilateral facet joint osteoarthritis. There is moderate bilateral, right greater than left, neural foraminal stenosis. There is mild centr al canal stenosis along with narrowing of the lateral recesses, right greater than left. L5-S1: Disc is mildly bulging with superimposed left paracentral disc protrusion. There is severe ector ateral facet joint osteoarthritis. There is mild to moderate left and moderate right neural foraminal stenosis. There is minimal central canal stenosis. IMPRESSION: 1. The mass of concern corresponds to a subcutaneous macroscopic fat attenuation bilobed lipoma or pa ir of lipomas. 2. Mild lumbar dextrocurvature with mild to moderate spondylosis. Reviewed, dictated and finalized at location A. 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 The mass of concern corresponds to a subcutaneous macroscopic fat attenuatio n bilobed lipoma or pair of lipomas. 2. Mild lumbar dextrocurvature with mild to moderate spondylosis.
== END ==
PROVIDERS: PCP Chiropractor; Visit Provider Family Medicine
DX: R22.2 Localized swelling, mass and lump, trunk (principal)
CPT/HCPCS: 72132; Q9967

== ENCOUNTER 2023-04-05 17:46 | Outpatient (CLI) | payer BC, SELFPAY ==
[2023-04-05 18:37] LABS: Appearance Urine Cloudy (Clear); Bacteria Urine None Seen /hpf; Bilirubin Urine 1+ (Negative); Color Urine Dark Yellow (Yellow); Glucose Urine UA Negative (Negative); Ketones Urine Negative (Negative); Leukocyte Esterase Ur 2+ LEU/UL (Negative); Need Manual Microscopic Reviewed; Nitrate Urine Positive (Negative); Non Pathogenic Casts 0-2; Protein Urine Trace mg/dL (Negative); Squamous Epithelial Cell Urine None seen /hpf (Few); WBC Urine >100 /hpf; pH Urine 7.5 (5.0-9.0)
[2023-04-05 18:40] LABS: Add Urine Microscopic? YES
== END 2023-04-05 17:47 | disposition home or self-care (01) ==
LOC: ANHLAB 17:47
PROVIDERS: PCP Chiropractor; Visit Provider Physician Assistant
DX: R30.0 Dysuria (principal)
CPT/HCPCS: 81001; 87086; 87088

== ENCOUNTER 2023-10-25 15:52 | Outpatient (CLI) | payer BC, SELFPAY ==
--- NOTE | ~2023-10-25 | XR_ITS ---
EXAM: XR foot RT 2V DATE: 10/25/2023 16:05 HISTORY: pain in Rt foot . COMPARISON: X-ray right ankle 01/14/2022. FINDINGS: Decreased mineralization. No fracture or dislocation. No lytic or blastic lesion. Moderate degenerative change at the first MTP joint. Plantar enthesopathy. No erosion or periosteal change. S oft tissues within normal limits. IMPRESSION: No acute osseous finding in the right foot. Reviewed, dictated and finalized at location K.
== END 2023-10-25 15:53 ==
LOC: MICIMG 15:53
PROVIDERS: PCP Student in an Organized Health Care Education/Training Program; Visit Provider Student in an Organized Health Care Education/Training Program
DX: M79.671 Pain in right foot (principal)
CPT/HCPCS: 73620

== ENCOUNTER 2023-11-24 18:37 | Emergency (ER) | payer BC, SELFPAY ==
--- NOTE | 2023-11-24 18:40 | ED.URI ---
HPI - URI/Sore Throat General Chief Complaint: Upper Respiratory Infection Stated Complaint: SORE THROAT Time Seen by Provider: 11/24/23 18:39 Source: patient Mode of arrival: ambulatory Limitations: no limitations History of Present Illness HPI Narrative: Shelia is a 58-year-old female patient presenting to the clinic today with complaints of a runny nose, cough, postnasal drip, and sore throat x1 day. She reports she did an at-home COVID test this morning and it was negative. Denies any fever or chills. Denies any chest pain or shortness of breath. MD elicited complaint: cough, sore throat and nasal congestion Related Data Home Medications Medication Instructions Recorded Confirmed cetirizine 10 mg tablet (Zyrtec) 10 mg PO DAILY PRN Runny Nose 01/14/22 11/24/23 Allergies Allergy/AdvReac Type Severity Reaction Status Date / Time sumatriptan [From Imitrex] Allergy Severe hives Verified 11/24/23 18:44 metronidazole Allergy Mild yeast Verified 11/24/23 18:44 infection codeine Allergy Unknown Vomiting Verified 11/24/23 18:44 hydrocodone Allergy Unknown Vomiting Verified 11/24/23 18:44 metoclopramide Allergy Unknown Unknown Verified 11/24/23 18:44 propoxyphene Allergy Unknown Unknown Verified 11/24/23 18:44 Sulfa (Sulfonamide Allergy Unknown HIVES Verified 11/24/23 18:44 Antibiotics) oxycodone AdvReac Severe Nausea Verified 11/24/23 18:44 tramadol AdvReac Severe Migraine Verified 11/24/23 18:44 oxycodone Allergy Mild vomiting Uncoded 11/24/23 18:44 tramadol Allergy Mild Migraine Uncoded 11/24/23 18:44 SULFAMETHOXAZOLE (Generic Allergy Unknown Y Uncoded 11/24/23 18:44 Allergy) SUMATRIPTAN SUCCINATE Allergy Unknown Y Uncoded 11/24/23 18:44 (Generic Allergy) Review of Systems Review of Systems: Pertinent positives per HPI. Patient denies any fever, chills, rash, headache, visual changes, dizziness, shortness of breath, chest pain, palpitations, nausea, vomiting, diarrhea, constipation, abdominal pain, or any urinary issues. PMF Past Medical History Medical History Ankylosing spondylitis Arthritis Bilateral knee pain Broken toe Claustrophobia Disorder of ligament, right ankle Dyslipidemia GERD (gastroesophageal reflux disease) Lyme disease Multiple joint pain Obesity (BMI 30-39.9) Obesity (BMI 30-39.9) Other spondylosis with radiculopathy, lumbosacral region Sleep disorder Alpha Wave Intrusion Surgical History Surgical History H/O LEEP History of breast augmentation around 26 History of cholecystectomy (~2001) History of knee surgery left knee 07/2018 Hx of tonsillectomy around age 34 Family History Family History Father Family history of rheumatoid arthritis Family history of cardiovascular disease Acute myocardial infarction Mother Family history of kidney disease Family history of dementia Cerebrovascular accident Sibling Family history of cardiovascular disease Other HLD (hyperlipidemia) Heart disease Hypertension Social History Social History Smoking status: Former smoker Tobacco type: cigarettes Second hand tobacco smoke exposure: No Smoking end date: 04/26/02 Alcohol intake: never Substance use: never Substance use type: does not use Lack of Transportation: No Lack of Food: Never True Current Housing: I Have Housing Concerned About Future Housing: No Difficulty Paying Gas/Electric Bills: No Difficulty Paying for Meds: No Currently Unemployed: No Education: Bachelor's Degree Difficulty w/ Childcare or Family Care: No Occupation/Education: occupation Gender identity (if verbalized by the patient): Female Comments At the time of my signature, I reviewed and agree with the nursing past
[2023-11-24 18:48] VITALS: BP 124/68; PULSE 67; RESP 16; TEMP 36.6; O2SAT 100
[2023-11-24 18:57] LABS: EDSTREPNEGPOS1 Presumptive Negative
== END 2023-11-24 18:57 | disposition home or self-care (01) ==
PROVIDERS: Emergency Provider Nurse Practitioner Family; PCP Family Medicine
DX: R09.82 Postnasal drip (principal); J06.9 Acute upper respiratory infection, unspecified; J02.9 Acute pharyngitis, unspecified; Z87.891 Personal history of nicotine dependence; E78.5 Hyperlipidemia, unspecified; K21.9 Gastro-esophageal reflux disease without esophagitis; E66.9 Obesity, unspecified; Z68.36 Body mass index [BMI] 36.0-36.9, adult
CPT/HCPCS: 87081; 87880; 99213; G0463

== ENCOUNTER 2023-12-09 10:52 | Emergency (ER) | payer OTHER, BC, SELFPAY ==
--- NOTE | ~2023-12-09 | XR_ITS ---
XR lumbar spine 2-3V 12/09/2023 12:07 Indication: Back pain Procedure: 3 views lumbar spine Comparison: 01/23/2022 Findings: Vertebral body heights are maintained. Mild disc narrowing at multiple levels. No fracture, subluxation or dislocation. No evidence for spondylolisthesis. Mild dextrocurvature of the lumbar sp ine. There are cholecystectomy clips. Impression: 1: Mild lumbar spondylosis. Reviewed, dictated and finalized at location B. Impression: 1: Mild lumbar spondylosis.
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
[2023-12-09 10:55] VITALS: BP 128/72; PULSE 60; RESP 18; TEMP 36.4; O2SAT 98
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
--- NOTE | 2023-12-09 12:32 | PC.NURSE ---
patient declines Flexeril today due to still needing to run lots of errands today and needing to drive around the rest of the day. provider notified of this.
[2023-12-09 12:41] VITALS: BP 126/82; PULSE 55; RESP 17; TEMP 36.8; O2SAT 97
== END 2023-12-09 12:41 | disposition home or self-care (01) ==
PROVIDERS: Emergency Provider Emergency Medicine; PCP Family Medicine
DX: M54.2 Cervicalgia (principal); R11.0 Nausea; M25.559 Pain in unspecified hip; M19.90 Unspecified osteoarthritis, unspecified site; E78.5 Hyperlipidemia, unspecified; K21.9 Gastro-esophageal reflux disease without esophagitis; V43.52XA Car driver injured in collision with other type car in traffic accident, initial encounter
CPT/HCPCS: 70450; 72100; 72125; 73521; 99284

== ENCOUNTER 2024-05-31 09:49 | Emergency (ER) | payer BC, SELFPAY ==
--- NOTE | ~2024-05-31 | XR_ITS ---
EXAMINATION: XR chest 2V DATE: 05/31/2024 11:15 INDICATION: 3 days of cough TECHNIQUE: PA and lateral views of the chest were obtained. COMPARISON: Chest radiograph dated 06/21/2011 FINDINGS: The lungs are clear with no focal airspace opacities, pulmonary edema, pleural effusion or pneumothor ax. The cardiomediastinal silhouette is normal. Bilateral breast implants with minimal capsular calci fication on the right. Cholecystectomy clips in right upper quadrant. IMPRESSION: 1. No acute cardiopulmonary disease. Reviewed, dictated and finalized at location A. 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
[2024-05-31 10:49] VITALS: BP 119/79; PULSE 80; RESP 16; TEMP 37.1; O2SAT 97
--- NOTE | 2024-05-31 11:29 | ED_ITS ---
HPI - URI/Sore Throat General Chief Complaint: Upper Respiratory Infection Stated Complaint: SORE THROAT/COUGH/WHEEZING Time Seen by Provider: 05/31/24 09:50 Source: patient Mode of arrival: ambulatory Limitations: no limitations History of Present Illness HPI Narrative: Patient is a 59-year-old female presents with productive cough, throat discomfort and feels like she is wheezing. Patient was seen by PCP 5 days ago. Denies any fever, chills, nausea vomiting, diarrhea. Has used cough drops and taken Tylenol. Related Data Allergies Allergy/AdvReac Type Severity Reaction Status Date / Time sumatriptan (From Imitrex) Allergy Severe hives Verified 05/26/24 10:26 metronidazole Allergy Mild yeast Verified 05/26/24 10:26 infection codeine Allergy Unknown Vomiting Verified 05/26/24 10:26 hydrocodone Allergy Unknown Vomiting Verified 05/26/24 10:26 metoclopramide Allergy Unknown Unknown Verified 05/26/24 10:26 propoxyphene Allergy Unknown Unknown Verified 05/26/24 10:26 Sulfa (Sulfonamide Allergy Unknown HIVES Verified 05/26/24 10:26 Antibiotics) oxycodone AdvReac Severe Nausea Verified 05/26/24 10:26 tramadol AdvReac Severe Migraine Verified 05/26/24 10:26 oxycodone Allergy Mild vomiting Uncoded 05/26/24 10:26 tramadol Allergy Mild Migraine Uncoded 05/26/24 10:26 SULFAMETHOXAZOLE (Generic Allergy Unknown Y Uncoded 05/26/24 10:26 Allergy) SUMATRIPTAN SUCCINATE Allergy Unknown Y Uncoded 05/26/24 10:26 (Generic Allergy) Review of Systems Review of Systems: All systems reviewed & are unremarkable except as noted in HPI and below Constitutional: Constitutional: Denies body ache(s), Denies chills, Denies fatigue, Denies fever(s), Denies headache(s), Denies malaise and Denies weakness Eyes: Eyes: Denies blurry vision, Denies itchy eyes and Denies loss of vision ENT: Denies otalgia, Denies headache(s), Denies nasal congestion, Denies sinus pain and Reports sore throat Cardiovascular: Cardiovascular: Denies chest pain, Denies irregular heart rhythm and Denies dyspnea Respiratory: Respiratory: Reports cough and Denies dyspnea Gastrointestinal: Gastrointestinal: Denies abdominal pain, Denies diarrhea, Denies nausea and Denies vomiting Musculoskeletal: Musculoskeletal: Denies back pain, Denies myalgias and Denies arthralgias Integumentary/Breasts: Skin/Breast: Denies pruritus and Denies rash Neurologic: Denies headache(s), Denies loss of vision and Denies weakness Psychiatric: Psychiatric: Reports no additional psychiatric complaints Endocrine: Endocrine: Denies fatigue Allergic/Immunologic: Allergic/Immunologic: Denies itchy eyes PMFSH Past Medical History Medical History Broken toe Ankylosing spondylitis Arthritis Claustrophobia Disorder of ligament, right ankle Other spondylosis with radiculopathy, lumbosacral region Obesity (BMI 30-39.9) Dyslipidemia Multiple joint pain Sleep disorder Alpha Wave Intrusion Lyme disease GERD (gastroesophageal reflux disease) Bilateral knee pain Obesity (BMI 30-39.9) Surgical History Surgical History History of knee surgery left knee 07/2018 History of breast augmentation around 26 Hx of tonsillectomy around age 34 History of cholecystectomy (~2001) H/O LEEP Family History Family History Father Family history of rheumatoid arthritis Family history of cardiovascular disease Acute myocardial infarction Mother Family history of kidney disease Family history of dementia Cerebrovascular accident Sibling Family history of cardiovascular disease Other HLD (hyperlipidemia) Heart disease Hypertension Social History Social History Smoking status: Former smoker Tobacco type: cigarettes Second hand tobacco smoke exposure: No Smoking end date: 04/26/02 Alcohol intake: never Substance use: never Substance use type: does not use Lack of Transportation: No Lack of Food: Never True Current Housing: I Have Housing Concerned About Future Housing: No Difficulty Paying Gas/Electric Bills: No Difficulty Paying for Meds: No Currently Unemployed: No Education: Bachelor's Degree Difficulty w/ Childcare or Family Care: No Occupation/Education: occupation Gender identity (if verbalized by the patient): Female Comments At time of signature, agree with nursing past medical, surgical, social and family history. There is no relevant family history pertinent to the presenting complaint. Exam Const: General: cooperative, healthy appearing, comfortable, no acute distress and well nourished Nutritional Appearance: well nourished Orientation/consciousness: patient oriented x3 Limitations: no limitations HENMT: Head: normal to inspection, normocephalic and atraumatic Ears: hearing grossly normal bilaterally, external ears normal, TM's normal bilaterally, EAC's normal and no periauricular adenopathy Face/Nose/Sinus: Normal external nose present, Abnormal mucous membranes and turbinates present erythematous bilateral and diffuse, normal facial exam, sinuses nontender and face symmetric Face and sinus: normal facial exam, sinuses nontender and face symmetric Mouth: Yes Normal oral and palatal mucosa present, Yes lip normal, Yes tongue normal, Yes Normal salivary glands and ducts present, Yes oropharynx normal and Yes moist mucous membranes Teeth and gingiva: dentition normal Throat: posterior oropharynx normal, tonsils normal and uvula midline Eyes: General: appearance normal, both eyes and all related structures Alignment and Position: alignment normal and position normal Periorbital: periorbital findings normal Eyelids: eyelids normal Pupils: Equal, round and reactive pupils present Neck: Neck: normal visual inspection, full ROM, no lymphadenopathy and supple Chest: Chest palpation & inspection: normal inspection of the chest and normal palpation of entire chest wall Resp: Effort & Inspection: normal respiratory effort and able to speak in complete sentences Auscultation: clear to auscultation bilaterally, no crackles, no rales, no rhonchi and no wheezes Cardio: Rate: regular rate Rhythm: regular rhythm Heart sounds: S1 normal heart sound present and S2 normal heart sound present GI: Inspection: normal to inspection Skin: General skin exam: normal color and no rashes or lesions noted Neuro: General: patient oriented x3 and moves all extremities Cranial nerves: Yes Equal, round and reactive pupils present Speech: normal speech Gait exam (Neuro): Normal gait present Extrem: General: normal to inspection, full ROM and no edema Psych: Appearance: grossly normal and well kempt Mental Status: mental status grossly normal Speech and movement: Normal speech and movement present Affect: normal affect Attitude: cooperative Thought process: Normal thought process present Course Course Emergency Course: Discharge instructions reviewed with patient, as well as provided in writing per nursing staff. The instructions also include specific and strict return/GO TO THE ER as well as f/u information. All questions have been answered, and the patient deny any further questions with discharge and discharge plan. Portions of this record may have been created with voice recognition software Level of Care: Express Care Visit Vital Signs Vital signs: Vital Signs Temperature 37.1 C 05/31/24 10:49 Pulse Rate 80 05/31/24 10:49 Respiratory Rate 16 05/31/24 10:49 Blood Pressure 119/79 05/31/24 10:49 Pulse Oximetry 97 05/31/24 10:49 Temperature 37.1 C 05/31/24 10:49 Pulse Rate 80 05/31/24 10:49 Respiratory Rate 16 05/31/24 10:49 Blood Pressure 119/79 05/31/24 10:49 Pulse Oximetry 97 05/31/24 10:49 Reviewed MDM - URI/Sore Throat MDM Narrative Medical decision making narrative: Pt well hydrated appearing, in no respiratory distress, hemodynamically stable. Recommend supportive care. The patient is stable at time of discharge the clinical impression was discussed and the patient was given the opportunity to ask questions, which were addressed as completely as possible given the information available at present. Anticipatory guidance and return to care precautions were discussed and the importance of primary care follow-up was stressed and encouraged. The patient voiced understanding of the plan, indications to return, and the need for follow-up. Differential diagnosis considered: Sumner virus, strep pharyngitis, allergic rhinitis, upper respiratory tract infection, sinusitis, rhinosinusitis, nasopharyngitis. viral pharyngitis, otitis media, otitis externa, otitis effusion, foreign body, cerumen impaction, viral syndrome, and influenza.? Exam findings show no acute concerns or changes; patient is non-toxic appearing and is in no distress.? Patient is appropriate for outpatient treatment and follow- up.? Medical Records Attestation: I reviewed the patient's medical records. Imaging Data Radiologist's impression: EXAMINATION: XR chest 2V DATE: 05/31/2024 11:15 INDICATION: 3 days of cough TECHNIQUE: PA and lateral views of the chest were obtained. COMPARISON: Chest radiograph dated 06/21/2011 FINDINGS: The lungs are clear with no focal airspace opacities, pulmonary edema, pleural effusion or pneumothorax. The cardiomediastinal silhouette is normal. Bilateral breast implants with minimal capsular calcification on the right. Cholecystectomy clips in right upper quadrant. IMPRESSION: 1. No acute cardiopulmonary disease. Discharge Plan Discharge Clinical Impression: Bronchitis Patient Disposition: Home, Self-Care Condition: Stable Instructions: Acute Bronchitis (ED) Additional Instructions: Your chest x-ray was clear. Use Tessalon Perles and albuterol inhaler as needed. Your symptoms are likely due to a viral illness, which is not treated with antibiotics. Viral symptoms can be present for up to a few weeks. -Alternate Tylenol and Motrin per package directions for fever or pain. -Antihistamine medication such as Benadryl/Zyrtec at night and Claritin/Nisha during the day can help improve symptoms. -Use Flonase twice a day for 5 days then daily to help reduce the inflammation and dry up your sinuses. -You can also use Sudafed behind the pharmacy counter(12 or 24 hour). Be sure to drink plenty of water with these medications at least 8 ounces with every dose and it is important to drink 8 to 10 glasses of water per day. Water is a natural decongestant -Eat and drink things that are easy to swallow, like tea or soup, or popsicles. -Oral rinses such as: Salt water gargles and/or may use topical anesthetic (eg. Chloraseptic spray) or lozenges to relieve dryness or throat pain). -Frequent hand washing or hand clinical data management manager is one of the best ways to prevent spread of infection. -Using a vaporizer or humidifier at night will also help thin secretions and help with coughing up phlegm. -Follow up with primary care provider in 3-5 days if condition is not improving - For new or worsening symptoms go directly to the nearest ER Patient Language: Yi Prescriptions: New benzonatate 100 mg capsule 100 mg PO BID PRN (Reason: cough) Qty: 14 0RF albuterol sulfate 90 mcg/actuation HFA aerosol inhaler 2 puff inhalation QID PRN (Reason: shortness of breath or wheezing) Qty: 6.7 0RF (DME) Aerochamber MV Spacer See Rx Instructions .Route Qty: 1 0RF Rx Instructions: As directed No Action diclofenac sodium [Arthritis Pain (diclofenac)] 1 % gel 2 g topical QID Qty: 100 1RF Rx Instructions: apply to single elbow, wrist or hand; for hand includes palm/fingers/back of hand scopolamine base 1 mg over 3 days patch 3 day 1 patch transdermal Q72H PRN (Reason: motion sickness) Qty: 4 0RF fluconazole 150 mg tablet 150 mg PO ONCE Qty: 3 0RF Rx Instructions: as a single dose for three dose for yeast infection rosuvastatin 10 mg tablet 10 mg PO DAILY Qty: 90 2RF Jublia 10 % solution with applicator 1 applic topical DAILY 336 Days Qty: 8 3RF fluticasone propionate 50 mcg/actuation spray,suspension 1 spray intranasal BID Qty: 16 3RF Rx Instructions: administer into each nostril bupropion HCl 300 mg tablet extended release 24 hr 300 mg PO QAM Qty: 30 0RF levocetirizine [Xyzal] 5 mg tablet 5 mg PO DAILY Qty: 90 3RF cyclobenzaprine 10 mg tablet 10 mg PO BID PRN (Reason: muscle spasm) Qty: 14 0RF Ubrelvy 50 mg tablet 50 mg PO .COMPLEX Qty: 10 0RF Rx Instructions: 50 mg orally; as a single dose; may repeat once in >=2 hours after first dose if needed pantoprazole 40 mg tablet,delayed release (DR/EC) 40 mg PO QAM Qty: 90 1RF ciclopirox 8 % solution 1 applic topical QHS Qty: 6.6 6RF Rx Instructions: to affected toenail phentermine 37.5 mg tablet 18.75 mg PO DAILY Qty: 15 0RF Rx Instructions: must administer 30 minutes before or 1-2 hours after breakfast diclofenac potassium 50 mg tablet 50 mg PO BID PRN (Reason: pain) Qty: 180 0RF montelukast 10 mg tablet 10 mg PO QHS Qty: 90 0RF trazodone 150 mg tablet 150 mg PO .QHS Qty: 90 1RF Rx Instructions: Take one tablet by mouth at bedtime Follow-up/Referrals: Nicole Mcmillan MD [Primary Care Provider] - 3 Days Stand Alone Forms: Work/School Release IP Time of Disposition: 11:44
== END 2024-05-31 11:50 | disposition home or self-care (01) ==
PROVIDERS: Emergency Provider Nurse Practitioner Family; PCP Family Medicine
DX: J40 Bronchitis, not specified as acute or chronic (principal); Z87.891 Personal history of nicotine dependence
CPT/HCPCS: 71046; 99213; G0463